=== PATIENT | male | born 1940 | race Caucasian/White ===

== ENCOUNTER 2016-07-19 14:37 | Observation (INO) | payer OTHER, BC ==
[~2016-07-19] VITALS: Ht 175.3 cm; Wt 102.3 kg
[~2016-07-19 14:37] MED LIST: ALEVE220 M2 PO; AMLODIPINE BES2.5 MG PO; AMLODIPINE BESY10 MG PO; ASPIR 8181 M1 PO; FLEXERIL10 MG PO; LEVAQUIN500 MG PO; LISINOPRIL40 MG PO; LOPRESSOR25 MG PO; LOPRESSOR50 MG PO; PANTOPRAZOLE SO40 MG PO; PERCOCET 5/31 TABLET PO; SIMVASTATIN20 MG PO
[2016-07-19 15:29] LABS: HEMATOCRIT 46.9 % (38.0-50.0); MCH 31.8 PG (29.0-34.0); MCHC 34.3 G/DL (30.0-36.0); MCV 92.5 FL (86-99); MEAN PLAT.VOLUME 10.2 uM^3 (9.0-12.4); PLATELET COUNT 187 K/uL (156-360); RBC DIS.WIDTH-CV 12.8 % (11.8-14.6); RBC DIS.WIDTH-SD 43.1 % (39-53); RED BLOOD COUNT 5.07 M/uL (4.00-5.50); WHITE BLOOD COUNT 6.7 K/uL (4.1-10.2)
[2016-07-19 15:40] LABS: CHLORIDE 108 mEq/L (99-109); POTASSIUM 4.2 mEq/L (3.7-5.4); SODIUM 141 mEq/L (136-147)
[2016-07-19 15:42] LABS: GLUCOSE 122 mg/dL (70-99)
[2016-07-19 15:43] LABS: ANION GAP 9 MEQ/L (2-14)
[2016-07-19 15:46] LABS: GFR ESTIMATE (CALCULATED) > 59 mL/min/
[2016-07-19 15:47] LABS: UREA NITROGEN (BUN) 17 mg/dL (9-23)
[2016-07-19 15:51] LABS: TROP-I INTERPRETATION NEGATIVE; TROPONIN-I < 0.01 ng/mL (0.0-0.30)
[2016-07-19] MEDS ORDERED: NORVASC5 MG PO (16:42)
[2016-07-19] MEDS ORDERED: FLONASE16 G1 BOTH NARES (16:44)
[2016-07-19] MEDS ORDERED: TYLENOL ARTHRI650 MG PO (16:44)
[2016-07-19 18:05] VITALS: BP 126/80
[2016-07-19 19:33] VITALS: BP 101/68
[2016-07-19 20:20] VITALS: BP 153/69
[2016-07-19 21:10] LABS: TROP-I INTERPRETATION NEGATIVE; TROPONIN-I 0.02 ng/mL (0.0-0.30)
[2016-07-19 23:18] VITALS: BP 116/62
[2016-07-20 04:38] LABS: HEMATOCRIT 43.1 % (38.0-50.0); MCH 31.7 PG (29.0-34.0); MCHC 34.1 G/DL (30.0-36.0); MCV 92.9 FL (86-99); MEAN PLAT.VOLUME 10.4 uM^3 (9.0-12.4); PLATELET COUNT 156 K/uL (156-360); RBC DIS.WIDTH-CV 12.7 % (11.8-14.6); RED BLOOD COUNT 4.64 M/uL (4.00-5.50); WHITE BLOOD COUNT 6.4 K/uL (4.1-10.2)
[2016-07-20 04:48] LABS: CHLORIDE 104 mEq/L (99-109); POTASSIUM 4.1 mEq/L (3.7-5.4); SODIUM 137 mEq/L (136-147)
[2016-07-20 04:50] LABS: GLUCOSE 125 mg/dL (70-99)
[2016-07-20 04:51] LABS: ANION GAP 8 MEQ/L (2-14)
[2016-07-20 04:54] LABS: GFR ESTIMATE (CALCULATED) > 59 mL/min/
[2016-07-20 04:55] LABS: UREA NITROGEN (BUN) 18 mg/dL (9-23)
[2016-07-20 04:59] LABS: TROP-I INTERPRETATION NEGATIVE; TROPONIN-I < 0.01 ng/mL (0.0-0.30)
[2016-07-20 05:25] VITALS: BP 147/74
[2016-07-20 07:02] VITALS: BP 135/85
[2016-07-20 11:44] VITALS: BP 128/75
[2016-07-20] MEDS ORDERED: METOPROLOL SUCC25 MG PO (13:41)
[2016-07-20] MEDS ORDERED: PANTOPRAZOLE SO40 MG PO (13:41)
== END 2016-07-20 14:02 | disposition home or self-care (01) ==
LOC: EME 14:37 → EDOF 16:30 → 5WEST 17:55
PROVIDERS: Hospitalist
DX: R07.89 Other chest pain (principal); R10.13 Epigastric pain; I49.3 Ventricular premature depolarization; I71.2 Thoracic aortic aneurysm, without rupture; K21.9 Gastro-esophageal reflux disease without esophagitis; R42 Dizziness and giddiness; I10 Essential (primary) hypertension; E78.5 Hyperlipidemia, unspecified; R73.01 Impaired fasting glucose
CPT/HCPCS: 71020; 71260; 80048; 84484; 85027; 93005; 99281; 99285; G0378; J1644

== ENCOUNTER 2017-06-06 10:21 | Emergency (ER) | payer OTHER, BC ==
[~2017-06-06] VITALS: Ht 175.3 cm; Wt 78.0 kg
[~2017-06-06 10:21] MED LIST changes: +FLONASE16 G1 BOTH NARES; +METOPROLOL SUCC25 MG PO; +NORVASC5 MG PO; +TYLENOL ARTHRI650 MG PO
[2017-06-06 11:44] LABS: MCH 32.6 PG (29.0-34.0); MCHC 35.4 G/DL (30.0-36.0); MCV 92.1 FL (86-99); PLATELET COUNT 169 K/uL (156-360); RBC DIS.WIDTH-CV 12.3 % (11.8-14.6); RBC DIS.WIDTH-SD 41.3 % (39-53); RED BLOOD COUNT 5.21 M/uL (4.00-5.50); WHITE BLOOD COUNT 6.9 K/uL (4.1-10.2)
[2017-06-06 11:58] LABS: ALBUMIN 4.1 g/dL (3.2-4.8); CHLORIDE 108 mEq/L (99-109); POTASSIUM 4.2 mEq/L (3.7-5.4); SODIUM 143 mEq/L (136-147)
[2017-06-06 12:00] LABS: GLUCOSE 127 mg/dL (70-99); TOTAL PROTEIN 7.4 g/dL (6.4-8.3)
[2017-06-06 12:04] LABS: ALKALINE PHOSPHATASE 63 IU/L (3-129); CREATININE 1.3 mg/dL (0.6-1.3); GFR ESTIMATE (CALCULATED) 57 mL/min/ (58.99-99999)
[2017-06-06 12:05] LABS: AST (GOT) 25 IU/L (2-34); TROP-I INTERPRETATION NEGATIVE; TROPONIN-I 0.03 ng/mL (0.0-0.30); UREA NITROGEN (BUN) 15 mg/dL (9-23)
[2017-06-06 12:07] LABS: ALT (GPT) 17 IU/L (3-49)
[2017-06-06 15:29] VITALS: BP 149/67
== END 2017-06-06 15:29 | disposition home or self-care (01) ==
LOC: EME 10:21
PROVIDERS: Emergency Medicine Emergency Medical Services
DX: R07.9 Chest pain, unspecified (principal); R10.9 Unspecified abdominal pain; I71.2 Thoracic aortic aneurysm, without rupture; N28.1 Cyst of kidney, acquired; K76.89 Other specified diseases of liver; K21.9 Gastro-esophageal reflux disease without esophagitis; I12.9 Hypertensive chronic kidney disease with stage 1 through stage 4 chronic kidney disease, or unspecified chronic kidney disease; N18.9 Chronic kidney disease, unspecified; Z87.891 Personal history of nicotine dependence
CPT/HCPCS: 71275; 74177; 80053; 84484; 85027; 93005; 99281; 99285

== ENCOUNTER 2017-11-07 08:45 | Emergency (ER) | payer OTHER, BC ==
[~2017-11-07] VITALS: Ht 175.3 cm; Wt 94.5 kg
[2017-11-07 09:45] LABS: HEMOGLOBIN 15.9 G/DL (12.5-16.6); MCH 32.5 PG (29.0-34.0); MCHC 35.3 G/DL (30.0-36.0); PLATELET COUNT 167 K/uL (156-360); RBC DIS.WIDTH-CV 12.6 % (11.8-14.6); RBC DIS.WIDTH-SD 42.3 % (39-53); RED BLOOD COUNT 4.89 M/uL (4.00-5.50); WHITE BLOOD COUNT 6.5 K/uL (4.1-10.2)
[2017-11-07 09:55] LABS: ALBUMIN 4.2 g/dL (3.2-4.8)
[2017-11-07 09:56] LABS: CHLORIDE 108 mEq/L (99-109); POTASSIUM 4.2 mEq/L (3.7-5.4); SODIUM 143 mEq/L (136-147)
[2017-11-07 09:58] LABS: GLUCOSE 130 mg/dL (70-99)
[2017-11-07 10:00] LABS: TOTAL BILIRUBIN 0.7 mg/dL (0.0-1.0)
[2017-11-07 10:01] LABS: ALKALINE PHOSPHATASE 61 IU/L (3-129)
[2017-11-07 10:02] LABS: CREATININE 1.3 mg/dL (0.6-1.3); GFR ESTIMATE (CALCULATED) 57 mL/min/ (58.99-99999)
[2017-11-07 10:03] LABS: AST (GOT) 16 IU/L (2-34); UREA NITROGEN (BUN) 20 mg/dL (9-23)
[2017-11-07 10:05] LABS: ALT (GPT) 13 IU/L (3-49); LIPASE 84 U/L (1.0-51.0)
[2017-11-07 12:30] VITALS: BP 151/66
== END 2017-11-07 12:51 | disposition home or self-care (01) ==
LOC: EME 08:45
PROVIDERS: Emergency Medicine
DX: R10.84 Generalized abdominal pain (principal); K44.9 Diaphragmatic hernia without obstruction or gangrene; K40.90 Unilateral inguinal hernia, without obstruction or gangrene, not specified as recurrent; E11.22 Type 2 diabetes mellitus with diabetic chronic kidney disease; I12.9 Hypertensive chronic kidney disease with stage 1 through stage 4 chronic kidney disease, or unspecified chronic kidney disease; N18.9 Chronic kidney disease, unspecified; K21.9 Gastro-esophageal reflux disease without esophagitis; Z87.891 Personal history of nicotine dependence
CPT/HCPCS: 74177; 80053; 83690; 85027; 93005; 99281; 99285; J7030